=== PATIENT | male | born 1995 | race Caucasian/White ===

== ENCOUNTER 2016-09-21 12:16 | Emergency (ER) | payer OTHER ==
[~2016-09-21] VITALS: Ht 175.3 cm; Wt 80.0 kg
[2016-09-21 12:21] VITALS: Ht 175.3 cm; Wt 80.0 kg
[2016-09-21] MEDS ORDERED: LIDOCAINE/MYLANTA 40 ML BTL PO ONE (13:00)
[2016-09-21] MEDS ORDERED: RANI150T9 PO (13:59)
[2016-09-21] MEDS ORDERED: OMEP40CA6 PO (13:59)
--- NOTE | 2016-09-21 14:13 | ERD ---
ER Documentation Chief Complaint Date/Time DATE: 09/21/16 TIME: 14:00 Chief Complaint ap x8 days HPI 20-year-old male is complaining of epigastric abdominal pain 8 days. Pain initially was on and off, it has now becoming more constant. Pain is sharp, radiating to the back. Patient reports pain worse after eating. Denies fever or chills. Denies nausea, vomiting, diarrhea, or constipation. Denies chest pain or shortness of breath. Denies acid reflux. ROS All systems reviewed and are negative except as per history of present illness. Medications Home Meds Active Scripts Ranitidine Hcl* (Zantac*) 150 Mg Tablet, 150 MG PO BID Y for EPIGASTRIC PAIN, # 30 TAB Prov:JUDY BLANCO. SPONGE CLIPPER 09/21/16 Omeprazole* (Omeprazole*) 40 Mg Capsule.dr, 40 MG PO QAM, #14 CAP Prov:JUDY BLANCO. SPONGE CLIPPER 09/21/16 Allergies Allergies: Coded Allergies: No Known Allergy (Unverified , 09/21/16) PMhx/Soc Medical and Surgical Hx: pt denies Medical Hx, pt denies Surgical Hx Hx Alcohol Use: No Hx Substance Use: No Hx Tobacco Use: No Smoking Status: Never smoker Physical Exam Vitals Vital Signs Date Time Temp Pulse Resp B/P Pulse Ox O2 Delivery O2 Flow Rate FiO2 09/21/16 12:21 98.1 80 18 130/80 99 Physical Exam General: Well-developed, well-nourished, conscious and coherent, in no distress Skin: Warm and dry without rash, good texture and turgor Head: Normocephalic without evidence of trauma Eyes: Sclera and conjunctivae normal; pupils equal, round, and reactive to light; extraocular movements are intact Neck: Supple without meningismus or adenopathy. Carotids are equal. Trachea midline. No bruits or JVD Chest: Normal AP diameter. Good expansion without retractions. Nontender. Lungs are clear to auscultate bilaterally with good tidal volume Heart: Regular rate and rhythm. No murmur, rub, or gallops heard Abdomen: Soft, mild epigastric tenderness without masses, guarding, or rebound. No other tenderness. Bowel sounds are active. No hepatosplenomegaly Back: Without spinal or CVA tenderness Extremities: Full range of motion. Good strength bilaterally. No clubbing, cyanosis, or edema. Peripheral pulses are intact. Sensation intact Neuro: Alert and oriented 4, GCS 15. Cranial nerves grossly intact. Motor and sensory exams nonfocal. Moves all extremities. Speech clear. Gait normal Results 24 hrs Current Medications Medications (Trade) Dose Ordered Sig/Alpa Route PRN Reason Start Time Stop Time Status Last Admin Dose Admin Miscellaneous Medication (Gi Cocktail (2)) 40 ml ONCE ONCE PO 09/21/16 13:00 09/21/16 13:01 DC 09/21/16 13:17 Procedures/MDM Well-appearing 20-year-old male present ED with epigastric abdominal pain 8 days. GI cocktail given to the patient in the ED. Patient reports improvement in pain after GI cocktail. I suspect his epigastric pain is due to gastritis. Low suspicion for aortic dissection, WI, pneumonia, bowel obstruction, cholecystitis, or appendicitis. He was sent here by his PCP to rule out hepatitis. Patient does not have any jaundice, I doubt acute hepatitis. Patient appears well, stable for discharge and outpatient management. Medical decision making shared with patient and family. Education provided to patient and family. Patient and family expressed understanding of the plan. Medications on discharge: Omeprazole, ranitidine. Follow-up: Primary care provider in 2-3 days or return to ED if worse. Departure Diagnosis: Primary Impression: Epigastric abdominal pain Condition: Stable Patient Instructions: Epigastric Pain (Uncertain Cause) [facility] Usted se herrera hecho un examen mdico de control que le indica que no est en sonia condicin que requiera tratamiento urgente en el Departamento de Emergencia. Un estudio ms profundo y el tratamiento de vasquez condicin pueden esperar sin ningn riesgo hasta que usted sea atendida/o en el consultorio de vasquez mdico o sonia cl jocy. Es responsabilidad suya arreglar sonia sukhwinder para el seguimiento del yenifer. MANEJO DE CONDICIONES NO URGENTES EN EL FUTURO 1) Si usted tiene un mdico de atencin primaria: Usted debera llamar a vasquez mdico de atencin primaria antes de venir al departamento de emergencia. Despus de las horas de consultorio, vasquez doctor o vasquez asociado/a est disponible por telfono. El mdico o enfermero de kylah en el servicio telefnico puede asesorarle por pasha medio para atender el problema, o yenifer contrario se puede programar sonia sukhwinder. 2) Si usted no tiene un mdico de atencin primaria: Llame al mdico o clnica de referencia que aparece abajo rocío las horas de consultorio para hacer sonia sukhwinder para que le vean. CLINICAS: [place] [phone] [facility] [phone] [facility] [phone] [facility]. [place] [phone] [facility] [place] [phone] [place] [phone] Additional Instructions: Llame al doctor MAANA y jenn sonia SUKHWINDER PARA DENTRO DE 2-3 HERNÁNDEZ.Dgale a la secretaria que nosotros le instruimos hacer esta sukhwinder.Avise o llame si vasquez condicin se empeora antes de la sukhwinder. Regresa aqui si peor o no mejor. JUDY BLANCO. ABDIFATAH Sep 21, 2016 14:12
== END 2016-09-21 14:11 | disposition home or self-care (01) ==
LOC: FTE 12:16
DX: R10.13 Epigastric pain (principal); R40.2412 Glasgow coma scale score 13-15, at arrival to emergency department
CPT/HCPCS: Z7502; Z7610; 99283